=== PATIENT | male | born 1985 | race Caucasian/White ===

== ENCOUNTER 2019-11-25 05:55 | Emergency (ER) | payer OTHER ==
[2019-11-25] MEDS ORDERED: Sodium Chloride 0.9% 10 ML Syringe FLUSH PRN (07:00)
[2019-11-25] MEDS ORDERED: Ondansetron 4 MG/2 ML SDV IVPUSH ONE (07:00)
[2019-11-25] MEDS ORDERED: FLU Vacc QS2019-20(6MOS+)/PF 60 MCG/0.5 ML SYRINGE IM ONE (07:00)
[2019-11-25] MEDS ORDERED: Sodium Chloride 0.9% 1,000 ML IV SCH (07:00)
[2019-11-25] MEDS ORDERED: HYDROmorphone 1 MG/ML Syringe IVPUSH ONE (07:01)
[2019-11-25] MEDS ORDERED: Ketorolac 30 MG/ML SDV IVPUSH ONE (07:01)
--- NOTE | 2019-11-25 07:10 | EDM.PDOC ---
ED HPI GENERAL MEDICAL PROBLEM - General Chief Complaint: Abdominal Pain Stated Complaint: extreme lower back and abdominal pain uti Time Seen by Provider: 11/25/19 06:53 Source of Information: Reports: Patient History Limitations: Reports: No Limitations - History of Present Illness INITIAL COMMENTS - FREE TEXT/NARRATIVE: The patient presents with low back pain that radiates to his abdomen. This started yesterday with dysuria and then this morning on his way to work the sever low back pain started. He has nausea but no vomiting. He has no hematuria that he has noticed. He has no fever, chills, cough, congestion, chest pain, or shortness of breath. Onset: Gradual Duration: Day(s): (Yesterday) Location: Reports: Abdomen, Back Quality: Reports: Sharp Severity: Severe Improves with: Reports: None Worsens with: Reports: None Associated Symptoms: Reports: Nausea/Vomiting. Denies: Chest Pain, Cough, Fever /Chills, Headaches, Shortness of Breath Bilateral Lower Back Pain Score (Numeric/FACES): 10 - Related Data Allergies Allergy/AdvReac Type Severity Reaction Status Date / Time No Known Allergies Allergy Verified 11/25/19 06:32 Home Meds: Home Meds Hydrocodone/Acetaminophen [Hydrocodon-Acetaminophen 5-325] 1 - 2 each PO Q6HR PRN #20 tablet 11/25/19 [Rx] Losartan [Cozaar] 1 tab PO DAILY 11/25/19 [History] Tamsulosin HCl [Flomax] 0.4 mg PO DAILY #7 cap.er.24h 11/25/19 [Rx] amLODIPine [Norvasc] 1 tab PO BEDTIME 11/25/19 [History] Past Medical History Cardiovascular History: Reports: Hypertension Psychiatric History: Reports: Anxiety - Infectious Disease History Infectious Disease History: Reports: Chicken Pox Social & Family History - Family History Family Medical History: Noncontributory : Reports: Renal Calculus - Tobacco Use Smoking Status *Q: Former Smoker Used Tobacco, but Quit: Yes Month/Year Tobacco Last Used: 09/2011 - Caffeine Use Caffeine Use: Reports: Coffee - Alcohol Use Date of Last Drink: 05/17/19 - Recreational Drug Use Recreational Drug Use: No ED ROS GENERAL - Review of Systems Review Of Systems: See Below Constitutional: Reports: No Symptoms HEENT: Reports: No Symptoms Respiratory: Reports: No Symptoms Cardiovascular: Reports: No Symptoms Endocrine: Reports: No Symptoms GI/Abdominal: Reports: Abdominal Pain, Nausea. Denies: Diarrhea, Vomiting : Reports: Flank Pain Musculoskeletal: Reports: Back Pain ED EXAM, RENAL/ - Physical Exam Exam: See Below Exam Limited By: No Limitations General Appearance: Alert, No Apparent Distress Ears: Normal External Exam Nose: Normal Inspection Head: Atraumatic, Normocephalic Neck: Normal Inspection Respiratory/Chest: No Respiratory Distress, Lungs Clear, Normal Breath Sounds Cardiovascular: Regular Rate, Rhythm, No Edema, No Murmur GI/Abdominal: Normal Bowel Sounds, Non-Tender, No Organomegaly, No Mass Course - Vital Signs Last Recorded V/S: Last Vital Signs Temp 96.5 F L 11/25/19 06:24 Pulse 94 11/25/19 06:24 Resp 22 H 11/25/19 06:24 BP 143/125 H 11/25/19 06:24 Pulse Ox 99 11/25/19 06:24 - Orders/Labs/Meds Orders: Active Orders 24 hr Category Date Time Status Influenza Vaccine Charge [RC] .DISCHARGE Care 11/25/19 06:44 Active Peripheral IV Care [RC] . DIRECTED Care 11/25/19 07:01 Active Sodium Chloride 0.9% [Normal Saline] 1,000 ml Med 11/25/19 07:00 Active IV ASDIRECTED Sodium Chloride 0.9% [Saline Flush] Med 11/25/19 07:00 Active 10 ml FLUSH ASDIRECTED PRN ED Antiemetic Medication Reflex [OM.PC] Stat Oth 11/25/19 07:00 Ordered Peripheral IV Insertion Adult [OM.PC] Stat Oth 11/25/19 07:00 Ordered Medication Orders Sodium Chloride (Normal Saline) 1,000 mls @ 125 mls/hr IV ASDIRECTED [facility] Last Admin: 11/25/19 07:17 Dose: 125 mls/hr Sodium Chloride (Saline Flush) 10 ml FLUSH ASDIRECTED PRN PRN Reason: Keep Vein Open Labs: Laboratory Tests 11/25/19 11/25/19 11/25/19 Range/Units 06:55 06:55 06:55 WBC 7.05 (4.23-9.07) K/mm3 RBC 5.08 (4.63-6.08) M/mm3 Hgb 15.0 (13.7-17.5) gm/dl Hct 45.1 (40.1-51.0) % MCV 88.8 (79.0-92.2) fl MCH 29.5 (25.7-32.2) pg MCHC 33.3 (32.2-35.5) g/dl RDW Std Deviation 38.6 (35.1-43.9) fL Plt Count 294 (163-337) K/mm3 MPV 10.7 (9.4-12.3) fl Neut % (Auto) 59.1 (34.0-67.9) % Lymph % (Auto) 31.3 (21.8-53.1) % [place] % (Auto) 7.0 (5.3-12.2) % Eos % (Auto) 2.4 (0.8-7.0) Baso % (Auto) 0.1 (0.1-1.2) % Neut # (Auto) 4.16 (1.78-5.38) K/mm3 Lymph # (Auto) 2.21 (1.32-3.57) K/mm3 [place] # (Auto) 0.49 (0.30-0.82) K/mm3 Eos # (Auto) 0.17 (0.04-0.54) K/mm3 Baso # (Auto) 0.01 (0.01-0.08) K/mm3 Sodium 141 (136-145) mEq/L Potassium 3.9 (3.5-5.1) mEq/L Chloride 104 (98-107) mEq/L Carbon Dioxide 22 (21-32) mEq/L Anion Gap 18.9 H (5-15) BUN 21 H (7-18) mg/dL Creatinine 1.0 (0.7-1.3) mg/dL Est Cr Clr Drug Dosing 105.44 mL/min Estimated GFR (MDRD) > 60 (>60) mL/min BUN/Creatinine Ratio 21.0 H (14-18) Glucose 125 H (74-106) mg/dL Calcium 8.6 (8.5-10.1) mg/dL Total Bilirubin 0.3 (0.2-1.0) mg/dL AST 21 (15-37) U/L ALT 28 (16-63) U/L Alkaline Phosphatase 80 (46-116) U/L Total Protein 7.5 (6.4-8.2) g/dl Albumin 3.9 (3.4-5.0) g/dl Globulin 3.6 gm/dL Albumin/Globulin Ratio 1.1 (1-2) Lipase 128 (73-393) U/L Urine Color Yellow (Yellow) Urine Appearance Clear (Clear) Urine pH 6.5 (5.0-8.0) Ur Specific [place] > or = 1.030 (1.005-1.030) Urine Protein Negative (Negative) Urine Glucose (UA) Negative (Negative) Urine Ketones Negative (Negative) Urine Occult Blood 3+ H (Negative) Urine Nitrite Negative (Negative) Urine Bilirubin Negative (Negative) Urine Urobilinogen 0.2 (0.2-1.0) Ur Leukocyte Esterase Negative (Negative) Urine RBC >100 H (0-5) /hpf Urine WBC 0-5 (0-5) /hpf Ur Squamous Epith Cells 0-5 (0-5) /hpf Urine Bacteria Few (FEW) /hpf Urine Mucus Few (FEW) /hpf Meds: Medications Generic Name Dose Route Start Last Admin Trade Name Freq PRN Reason Stop Dose Admin Sodium Chloride 1,000 mls @ 125 mls/hr 11/25/19 07:00 11/25/19 07:17 Normal Saline IV 125 mls/hr ASDIRECTED ANTIONETTE Administration Sodium Chloride 10 ml 11/25/19 07:00 Saline Flush FLUSH ASDIRECTED PRN Keep Vein Open Discontinued Medications Generic Name Dose Route Start Last Admin Trade Name Freq PRN Reason Stop Dose Admin Hydromorphone HCl 1 mg 11/25/19 07:01 11/25/19 07:17 Dilaudid IVPUSH 11/25/19 07:02 1 mg ONETIME ONE Administration Influenza Virus Vaccine 60 mcg 11/25/19 07:00 Fluzone Quad Syringe IM 11/25/19 07:01 .ONCE ONE Ketorolac Tromethamine 30 mg 11/25/19 07:01 11/25/19 07:16 Toradol IVPUSH 11/25/19 07:02 30 mg ONETIME ONE Administration Ondansetron HCl 4 mg 11/25/19 07:00 11/25/19 07:16 Zofran IVPUSH 11/25/19 07:01 4 mg ONETIME ONE Administration - Re-Assessments/Exams Free Text/Narrative Re-Assessment/Exam: 11/25/19 07:09 I ordered an IV NS at 125mL/hr, zofran 4mg IV, toradol 30mg IV, dilaudid 1mg IV , labs, UA and a CT of his abdomen and pelvis. 11/25/19 08:59 His CBC looks good. His anion gap is elevated at 18.9. His BUN is elevated at 21. His lipase is normal. His UA shows blood but no UTI. I will get him on some flomax and something for pain. Departure - Departure Time of Disposition: 09:05 Disposition: Home, Self-Care 01 Condition: Good Clinical Impression: Kidney stone on right side - Discharge Information *PRESCRIPTION DRUG MONITORING PROGRAM REVIEWED*: No *COPY OF PRESCRIPTION DRUG MONITORING REPORT IN PATIENT WILLIAM: No Prescriptions: Hydrocodone/Acetaminophen [Hydrocodon-Acetaminophen 5-325] 1 - 2 each PO Q6HR PRN #20 tablet PRN Reason: Pain Tamsulosin HCl [Flomax] 0.4 mg PO DAILY #7 cap.er.24h Referrals: PCP,None [Primary Care Provider] - Jack Palumbo MD [Ordering Only Provider] - 2 Weeks Forms: ED Department Discharge Additional Instructions: Drink plenty of fluids. Take the tamiflu daily. Take motrin or tylenol for pain. If that does not help try the hydrocodone. If you have not passed the stone within a week call Dr Palumbo the urologist in [place] and follow up. Please return if you are worse. Sepsis Event Note - Evaluation Sepsis Screening Result: No Definite Risk - Focused Exam Vital Signs: Vital Signs Temp Pulse Resp BP Pulse Ox 11/25/19 06:24 96.5 F L 94 22 H 143/125 H 99 Date Exam was Performed: 11/25/19 Time Exam was Performed: 08:59 - My Orders Last 24 Hours: My Active Orders 11/25/19 06:44 Influenza Vaccine Charge [RC] .DISCHARGE 11/25/19 07:00 Sodium Chloride 0.9% [Normal Saline] 1,000 ml IV ASDIRECTED Sodium Chloride 0.9% [Saline Flush] 10 ml FLUSH ASDIRECTED PRN ED Antiemetic Medication Reflex [OM.PC] Stat Peripheral IV Insertion Adult [OM.PC] Stat 11/25/19 07:01 Peripheral IV Care [RC] . DIRECTED - Assessment/Plan Last 24 Hours: My Active Orders 11/25/19 06:44 Influenza Vaccine Charge [RC] .DISCHARGE 11/25/19 07:00 Sodium Chloride 0.9% [Normal Saline] 1,000 ml IV ASDIRECTED Sodium Chloride 0.9% [Saline Flush] 10 ml FLUSH ASDIRECTED PRN ED Antiemetic Medication Reflex [OM.PC] Stat Peripheral IV Insertion Adult [OM.PC] Stat 11/25/19 07:01 Peripheral IV Care [RC] . DIRECTED
--- NOTE | 2019-11-25 08:39 | CT ---
CT abdomen and pelvis Technique: Multiple axial sections were obtained from above the dome of the diaphragm inferiorly through the pubic symphysis. Intravenous and oral contrast not utilized. Study has been performed as a ureteral stone protocol. Comparison: No prior CT abdomen or pelvis exam is available. Findings: Horseshoe kidney is noted. Right ureter is dilated down to the UVJ. 2.5-3 mm stone noted at the UVJ projecting into the bladder. No other ureteral calculi are seen. No renal calculi are identified. Visualized lung bases show nothing acute. Liver contains no focal parenchymal abnormality. Spleen appears within normal limits. Adrenal glands show no nodule. Accessory splenic tissue noted medial to the spleen. Pancreas appears within normal limits. Gallbladder contains no calcified gallstones. Aorta shows no aneurysm. No retroperitoneal adenopathy or mesenteric abnormalities are seen. No pelvic mass or adenopathy is seen. No free fluid is identified. No inflammatory change is seen. Appendix not definitely visualized. Please correlate if there has been prior appendectomy. Bone window settings were reviewed which appear within normal limits for the patient's age. Small fat-containing umbilical hernia is noted. Impression: 1. Distal obstructing right ureteral stone measuring 2.5-3 mm. This is located within the UVJ projecting into the bladder. 2. Horseshoe kidney. 3. No other acute finding is appreciated. Diagnostic code #3 This report was dictated in MDT
== END 2019-11-25 09:35 | disposition home or self-care (01) ==
LOC: JD.ED 05:55
DX: N20.2 Calculus of kidney with calculus of ureter (principal); I10 Essential (primary) hypertension; Z87.891 Personal history of nicotine dependence
CPT/HCPCS: 36415; 74176; 80053; 81001; 83690; 85025; 90471; 90686; 96361; 96374; 96375; 99284; J1170; J1885; J2405; J7030; G0008

== ENCOUNTER 2020-09-07 14:50 | Emergency (ER) | payer OTHER ==
--- NOTE | 2020-09-07 15:37 | EDM.PDOC ---
<Essie Arellano M - Last Filed: 09/07/20 16:29> ED HPI GENERAL MEDICAL PROBLEM - General Chief Complaint: General Stated Complaint: RT SIDE RIB PAIN Time Seen by Provider: 09/07/20 15:15 Source of Information: Reports: Patient History Limitations: Reports: No Limitations - History of Present Illness INITIAL COMMENTS - FREE TEXT/NARRATIVE: 35-year-old male presents to the emergency department with complaints of right- sided rib pain and left calf pain. Patient states he woke Monday morning with pain to his right ribs. Patient states that the pain radiates around anteriorly and he is unable to take a full deep breath as it causes a sharp stabbing pain. He also states that this pain radiates up into his right shoulder and right side of his neck. Patient also complains of left calf pain that he woke with on Monday morning patient states that when he takes weight off of his leg it feels like it is cramping up into and knot in his calf area. Of note patient does have a history of blood clot in his leg about 3 years ago and he states this feels similar to that instance. They never did find a definitive reason for him having the blood clot. Patient also does have a history of COVID-19 diagnosed in April. He states he has been taking Tylenol for the discomfort noted to his right rib and left calf and this has not been helping. He has also tried using a heating pad and this has not helped. Right Chest Pain Score (Numeric/FACES): 9 - Related Data Allergies Allergy/AdvReac Type Severity Reaction Status Date / Time No Known Allergies Allergy Verified 09/07/20 15:09 Home Meds: Home Meds Losartan [Cozaar] 1 tab PO DAILY 11/25/19 [History] amLODIPine [Norvasc] 10 mg PO BEDTIME 11/25/19 [History] Cefdinir [Omnicef] 300 mg PO BID #16 cap 09/07/20 [Rx] dexAMETHasone [Dexamethasone] 4 mg PO ASDIRECTED #6 tablet 09/07/20 [Rx] oxyCODONE HCl/Acetaminophen [Percocet 5-325 mg Tablet] 1 - 2 each PO Q4H PRN #15 tablet 09/07/20 [Rx] Past Medical History Cardiovascular History: Reports: Blood Clots/VTE/DVT, Hypertension Genitourinary History: Reports: Renal Calculus Psychiatric History: Reports: Anxiety Endocrine/Metabolic History: Reports: Obesity/BMI 30+ - Infectious Disease History Infectious Disease History: Reports: Chicken Pox - Past Surgical History GI Surgical History: Reports: Appendectomy Musculoskeletal Surgical History: Reports: Arthroscopic Knee Social & Family History - Family History Family Medical History: No Pertinent Family History : Reports: Renal Calculus - Tobacco Use Tobacco Use Status *Q: Never Tobacco User - Caffeine Use Caffeine Use: Reports: Soda - Recreational Drug Use Recreational Drug Use: No ED ROS GENERAL - Review of Systems Review Of Systems: See Below Constitutional: Reports: Malaise, Fatigue, Other (ER vital signs 97.6, pulse 106, respiratory rate 16, blood pressure 148/108, pulse ox 97% on room air) HEENT: Reports: No Symptoms Respiratory: Reports: No Symptoms, Other (Complains of stabbing pain to right lateral rib area radiating around anteriorly) Cardiovascular: Reports: No Symptoms Endocrine: Reports: No Symptoms GI/Abdominal: Reports: No Symptoms : Reports: No Symptoms Musculoskeletal: Reports: Neck Pain (Radiating from right rib area), Shoulder Pain (Radiating from right rib area) Skin: Reports: No Symptoms Neurological: Reports: No Symptoms Psychiatric: Reports: No Symptoms Hematologic/Lymphatic: Reports: No Symptoms Immunologic: Reports: No Symptoms ED EXAM, GENERAL - Physical Exam Exam: See Below Exam Limited By: No Limitations General Appearance: Alert, WD/WN, No Apparent Distress Eye Exam: Bilateral Eye: PERRL Ears: Hearing Grossly Normal Nose: Normal Inspection Throat/Mouth: Normal Inspection, Normal Voice, No Airway Compromise Head: Atraumatic, Normocephalic Neck: Normal Inspection, Supple, Non-Tender, Full Range of Motion Respiratory/Chest: No Respiratory Distress, Lungs Clear, Normal Breath Sounds, No Accessory Muscle Use, Chest Non-Tender, Other (Patient is unable to take a full deep breath due to right lateral rib pain that worsens with deep breath.) Cardiovascular: Normal Peripheral Pulses, Regular Rate, Rhythm, No Edema, No Murmur Peripheral Pulses: 2+: Radial (L), Radial (R) GI/Abdominal: Normal Bowel Sounds, Soft, Non-Tender, No Distention (Male) Exam: Deferred Rectal (Males) Exam: Deferred Back Exam: Normal Inspection, Full Range of Motion Extremities: Normal Inspection, Normal Range of Motion, No Pedal Edema, Normal Capillary Refill, Cole's Sign (Positive on left lower extremity), Leg Pain (Lower extremity) Neurological: Alert, Oriented, Normal Cognition Psychiatric: Normal Affect, Normal Mood Skin Exam: Warm, Dry, Intact, Normal Color, No Rash Lymphatic: No Adenopathy #1 Interpretation EKG Date: 09/07/20 Time: 15:35 Rhythm: NSR Rate (Beats/Min): 94 [place]: Normal P-Wave: Present QRS: Normal ST-T: Normal EKG Interpretation Comments: EKG interpretation per Dr. Galan sinus rhythm at 94, early R wave transitiony:Consider RVH/septal hypertrophy, left atrial hypertrophy, T wave flattened aVF, diffuse early repolarization pattern Course - Vital Signs Text/Narrative:: 35-year-old male presenting to the ER with complaints of right rib pain and left calf pain. States that he woke Monday with the right lateral rib pain that radiates around anteriorly. Patient describes it as a stabbing pain worsened with taking a deep breath. He states that the pain will radiate up into his right shoulder and also up into the right side of his neck. Denies smoking cigarettes, making, smoking marijuana or any kind of inhaled substances. Denies cough, fever, or chills. States that starting yesterday he did have general malaise that started and has just been wanting to sleep. He was recently diagnosed with Covid in April. Patient also complains of pain to his left calf that started Monday morning as well. He does have a history of a blood clot to his leg and he states that this feels similar to that event. S tates that when he is ambulating and takes weight off of that left leg cramps up. He has tried to take Tylenol for the discomfort and states this has not helped. Upon assessment patient's lung sounds are clear anterior and posteriorly, heart rate is regular, he denies any abdominal pain with palpation. Denies shortness of breath and/or cough. 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 He does not relate any of this discomfort to that activity, however because he did not develop the pain until Monday which was 3 days later. He does have a history of hypertension for which he takes losartan and amlodipine. I have ordered a CBC, CMP, CRP, LDH, D-dimer, proBNP, PT/INR, APTT, troponin, portable chest x-ray, EKG, and bilateral lower extremity ultrasound. - Radiology Interpretation Free Text/Narrative:: Portable view of the chest impression: 1. Blunting of the right lateral costophrenic angle either due to atelectasis or small area of pneumonia if patient has infectious symptoms. 2. Nothing acute is otherwise seen. I have ordered a CTA of the patient's chest. - Re-Assessments/Exams Free Text/Narrative Re-Assessment/Exam: 09/07/20 16:29 I have given report to regarding this patient. He will be taking over care. Departure - Departure Disposition: Home, Self-Care 01 Clinical Impression: Pleurisy with pleural effusion, Non-cardiac chest pain Pneumonia Qualifiers: Pneumonia type: due to unspecified organism Laterality: right Lung location: lower lobe of lung Qualified Code(s): J18.9 - Pneumonia, unspecified organism - Discharge Information Prescriptions: dexAMETHasone [Dexamethasone] 4 mg PO ASDIRECTED #6 tablet Cefdinir [Omnicef] 300 mg PO BID #16 cap oxyCODONE HCl/Acetaminophen [Percocet 5-325 mg Tablet] 1 - 2 each PO Q4H PRN #15 tablet PRN Reason: pain relief. Instructions: Nonspecific Chest Pain, Adult, [id number], Pleural Effusion, Community-Acquired Pneumonia, Adult, [id number] Referrals: PCP,None [Primary Care Provider] - Forms: ED Department Discharge, ED Return to Work/School Form Additional Instructions: Evaluation in the emergency room today in regards to discomfort in the posterior aspect of your left calf concerning for possible DVT since you have had one in the past. Doppler ultrasound of both lower extremities revealed no blood clots within either lower extremity. Pleuritic chest pain right side along the lower rib margin rating into her back and up into the right shoulder indicating marked inflammation of the pleura or the lung lining on the right side. Portable chest x-ray revealed an infiltrate in the right lower lobe of the lung compatible with a early pneumonia. CT scan of the chest was ordered to rule out any blood clot in the lung and none was found. You did have an elevated D-dimer which is a marker for blood clot formation and blood clot breakdown but it can be elevated with infection as well. CT scan confirmed pneumonia developing in the lower lobe of your right lung a small area of pneumonia in the right middle lobe of your lung and perhaps early in the left lingula or upper lobe of lung. White blood cell count was mildly elevated compatible with an infective process. You were treated with an intravenous antibiotic Rocephin 2 g in the emergency room and oral antibiotic Levaquin 500 mg by mouth. Both of these last about 24 hours. You will need to take oral antibiotic Omnicef 300 mg twice daily starting tomorrow morning and continue this for the next 8 days until the medicine is gone. Pleuritic chest pain treated with Toradol 30 mg in the ER as well as Dilaudid 0.5 mg with an improvement but still had residual pain. You are also given a dose of dexamethasone 6 mg IV which will start to work in 2 to 4 hours to relieve some of the inflammation in the right lung and ease up your pain. Pain pills Percocet 5/325 mg 1 or 2 every 4-6 hours as needed for pain relief over the next 2 to 3 days till the antibiotics become effective in clearing up the pneumonia and pleuritic chest pain should improve. You can still use Motrin 600 mg every 6 hours to relieve inflammation of the lung lining as needed over the next 2 to 3 days. Suggest off work the remainder of this week with tentative return to work September 14. Note given in this regard. Suggest follow-up with your personal care provider in 10 days time to ensure the pneumonia has completely cleared. Sepsis Event Note (ED) - Evaluation Sepsis Screening Result: No Definite Risk <Pasquale Mendez - Last Filed: 09/07/20 19:18> Course - Vital Signs Last Recorded V/S: Last Vital Signs Temp 36.4 C 09/07/20 15:06 Pulse 106 H 09/07/20 15:06 Resp 16 09/07/20 15:06 BP 148/108 H 09/07/20 15:06 Pulse Ox 97 09/07/20 15:06 - Orders/Labs/Meds Orders: Active Orders 24 hr Category Date Time Status EKG Documentation Completion [RC] STAT Care 09/07/20 15:27 Active Ketorolac [Toradol] Med 09/07/20 18:00 Active 30 mg IVPUSH ONETIME Sodium Chloride 0.9% [Normal Saline] 100 ml Med 09/07/20 17:15 Active IV ASDIRECTED Sodium Chloride 0.9% [Saline Flush] Med 09/07/20 17:15 Active 10 ml FLUSH BOLUS Medication Orders Sodium Chloride (Normal Saline) 100 mls @ 60 mls/sec IV ASDIRECTED ANTIONETTE Last Admin: 09/07/20 17:04 Dose: 60 mls/sec Documented by: DELVIS Ketorolac Tromethamine (Toradol) 30 mg IVPUSH ONETIME ANTIONETTE Last Admin: 09/07/20 18:22 Dose: 30 mg Documented by: EMILIO Sodium Chloride (Saline Flush) 10 ml FLUSH BOLUS ANTIONETTE Last Admin: 09/07/20 17:05 Dose: 10 ml Documented by: DELVIS Labs: Laboratory Tests 09/07/20 09/07/20 09/07/20 Range/Units 15:45 15:45 15:45 WBC 11.42 H (4.23-9.07) K/mm3 RBC 5.16 (4.63-6.08) M/mm3 Hgb 15.8 (13.7-17.5) gm/dl Hct 47.2 (40.1-51.0) % MCV 91.5 (79.0-92.2) fl MCH 30.6 (25.7-32.2) pg MCHC 33.5 (32.2-35.5) g/dl RDW Std Deviation 40.3 (35.1-43.9) fL Plt Count 255 (163-337) K/mm3 MPV 10.2 (9.4-12.3) fl Neut % (Auto) 71.1 H (34.0-67.9) % Lymph % (Auto) 18.4 L (21.8-53.1) % [place] % (Auto) 8.1 (5.3-12.2) % Eos % (Auto) 2.2 (0.8-7.0) Baso % (Auto) 0.1 (0.1-1.2) % Neut # (Auto) 8.13 H (1.78-5.38) K/mm3 Lymph # (Auto) 2.10 (1.32-3.57) K/mm3 [place] # (Auto) 0.92 H (0.30-0.82) K/mm3 Eos # (Auto) 0.25 (0.04-0.54) K/mm3 Baso # (Auto) 0.01 (0.01-0.08) K/mm3 Manual Slide Review Normal smear PT 11.0 (9.7-12.0) SECONDS INR 1.03 APTT 28.8 (21.7-31.4) SECONDS D-Dimer, Quantitative 2.14 H (0.19-0.50) mg/L Sodium 138 (136-145) mEq/L Potassium 3.9 (3.5-5.1) mEq/L Chloride 102 (98-107) mEq/L Carbon Dioxide 27 (21-32) mEq/L Anion Gap 12.9 (5-15) BUN 13 (7-18) mg/dL Creatinine 1.0 (0.7-1.3) mg/dL Est Cr Clr Drug Dosing 104.43 mL/min Estimated GFR (MDRD) > 60 (>60) mL/min BUN/Creatinine Ratio 13.0 L (14-18) Glucose 97 (74-106) mg/dL Calcium 9.1 (8.5-10.1) mg/dL Total Bilirubin 0.9 (0.2-1.0) mg/dL AST 17 (15-37) U/L ALT 30 (16-63) U/L Alkaline Phosphatase 84 (46-116) U/L Lactate Dehydrogenase 139 (85-227) U/L Troponin I < 0.017 (0.00-0.056) ng/mL C-Reactive Protein 6.4 H* (<1.0) mg/dL NT-Pro-B Natriuret Pep (0-125) pg/mL Total Protein 8.3 H (6.4-8.2) g/dl Albumin 3.7 (3.4-5.0) g/dl Globulin 4.6 gm/dL Albumin/Globulin Ratio 0.8 L (1-2) 09/07/20 Range/Units 15:45 WBC (4.23-9.07) K/mm3 RBC (4.63-6.08) M/mm3 Hgb (13.7-17.5) gm/dl Hct (40.1-51.0) % MCV (79.0-92.2) fl MCH (25.7-32.2) pg MCHC (32.2-35.5) g/dl RDW Std Deviation (35.1-43.9) fL Plt Count (163-337) K/mm3 MPV (9.4-12.3) fl Neut % (Auto) (34.0-67.9) % Lymph % (Auto) (21.8-53.1) % [place] % (Auto) (5.3-12.2) % Eos % (Auto) (0.8-7.0) Baso % (Auto) (0.1-1.2) % Neut # (Auto) (1.78-5.38) K/mm3 Lymph # (Auto) (1.32-3.57) K/mm3 [place] # (Auto) (0.30-0.82) K/mm3 Eos # (Auto) (0.04-0.54) K/mm3 Baso # (Auto) (0.01-0.08) K/mm3 Manual Slide Review PT (9.7-12.0) SECONDS INR APTT (21.7-31.4) SECONDS D-Dimer, Quantitative (0.19-0.50) mg/L Sodium (136-145) mEq/L Potassium (3.5-5.1) mEq/L Chloride (98-107) mEq/L Carbon Dioxide (21-32) mEq/L Anion Gap (5-15) BUN (7-18) mg/dL Creatinine (0.7-1.3) mg/dL Est Cr Clr Drug Dosing mL/min Estimated GFR (MDRD) (>60) mL/min BUN/Creatinine Ratio (14-18) Glucose (74-106) mg/dL Calcium (8.5-10.1) mg/dL Total Bilirubin (0.2-1.0) mg/dL AST (15-37) U/L ALT (16-63) U/L Alkaline Phosphatase (46-116) U/L Lactate Dehydrogenase (85-227) U/L Troponin I (0.00-0.056) ng/mL C-Reactive Protein (<1.0) mg/dL NT-Pro-B Natriuret Pep 9 (0-125) pg/mL Total Protein (6.4-8.2) g/dl Albumin (3.4-5.0) g/dl Globulin gm/dL Albumin/Globulin Ratio (1-2) Meds: Medications Generic Name Dose Route Start Last Admin Trade Name Freq PRN Reason Stop Dose Admin Sodium Chloride 100 mls @ 60 mls/sec 09/07/20 17:15 09/07/20 17:04 Normal Saline IV 60 mls/sec ASDIRECTED ANTIONETTE Administration Ketorolac Tromethamine 30 mg 09/07/20 18:00 09/07/20 18:22 Toradol IVPUSH 30 mg ONETIME ANTIONETTE Administration Sodium Chloride 10 ml 09/07/20 17:15 09/07/20 17:05 Saline Flush FLUSH 10 ml BOLUS ANTIONETTE Administration Discontinued Medications Generic Name Dose Route Start Last Admin Trade Name Freq PRN Reason Stop Dose Admin Dexamethasone 6 mg 09/07/20 17:49 09/07/20 18:15 Decadron IVPUSH 09/07/20 17:50 6 mg ONETIME ONE Administration Hydromorphone HCl 0.5 mg 09/07/20 17:50 09/07/20 18:14 Dilaudid IVPUSH 09/07/20 17:51 0.5 mg ONETIME ONE Administration Ceftriaxone Sodium 2 gm/ 100 mls @ 200 mls/hr 09/07/20 17:51 09/07/20 18:17 Sodium Chloride IV 09/07/20 18:20 200 mls/hr ONETIME ONE Administration Iopamidol 100 ml 09/07/20 17:02 09/07/20 17:04 Isovue-370 (76%) IVPUSH 09/07/20 17:03 100 ml ONETIME ONE Administration Levofloxacin 500 mg 09/07/20 17:49 09/07/20 18:17 Levaquin PO 09/07/20 17:50 500 mg ONETIME ONE Administration Ondansetron HCl 4 mg 09/07/20 17:51 09/07/20 18:12 Zofran IVPUSH 09/07/20 17:52 4 mg ONETIME ONE Administration - Re-Assessments/Exams Free Text/Narrative Re-Assessment/Exam: 09/07/20 17:14 Care has been assumed from JACKIE Arellano. Doppler ultrasound of both lower extremities reveals no evidence of DVT in either leg. Normal phasic flow augmentation and compression is seen. 09/07/20 17:17 White count is mildly elevated at 11.42 with 71.1% neutrophils. Hemoglobin is 15.8 with a hematocrit of 47.2. Platelet count 255,000. The smear otherwise appears normal. PT is 11.0 with an INR of 1.03 and PTT of 28.8. D-dimer is elevated at 2.14. Sodium 138 with a potassium of 3.9 chloride 102 with a bicarb of 27. Anion gap is 12.9. BUN is 13 with a creatinine of 1.0 GFR is greater than 60. Glucose is 97 with a calcium of 9.1 liver function is normal. LDH is 139 normal. Troponin is less than 0.017. C-reactive protein is elevated at 6.4. BNP is 9. Total protein is 8.3 with an albumin fraction of 3.7. 09/07/20 17:38 CT of the chest has been completed with IV contrast a CT pulmonary angiogram. The pulmonary arteries are fairly well opacified. There are no filling defects seen to indicate a obvious pulmonary embolism. Interpretation of the scan is limited by timing of IV contrast. Slight soft tissue density noted within the superior mediastinum most likely due to residual thymus. No axial adenopathy is seen. Mediastinum shows no adenopathy. Several lymph nodes are seen within the right hilum. No pericardial thickening is seen. Visualized upper abdominal structures show no discrete abnormality. Lung window settings were reviewed. There is an area of increased density within the right lung base as well as a lesser change within the right middle lobe and minimal change within the lingula. Minimal right-sided pleural effusion is seen. Findings are suggestive of a pneumonia. Plan he will be given IV Rocephin 2gm IV. 09/07/20 17:48 and made aware of the findings on CT and chest x-ray of a developing pneumonia right lower lobe and perhaps in the lingula. There is also suspicious lesion in the right middle lobe suggesting pneumonia. It is unlikely that this is related to COVID-19 illness as he had Covid in April of this last year. He will receive Rocephin 2 g intravenously here. He still having significant pleuritic pain. Will be given Dilaudid 0.5 mg IV. And 4 mg IV as well. 09/07/20 19:00: Has completed his Rocephin intravenously. He will be discharged home on Omnicef 300 mg twice daily for another 8 days to clear up pneumonia. Dexamethasone 4 mg twice daily with breakfast and supper starting tomorrow morning for 3 days to help relieve pleuritic chest pain. Percocet tabs 5/325 mg 1-2 every 4-6 hours needed for relief of pleuritic chest pain until antibiotics become effective. Motrin 600 mg every 6 hours to relieve inflammation as needed. Suggest follow-up with his primary care physician in 10 to 14 days time. Note given to excuse him from the workplace until next September 14. Departure - Departure Time of Disposition: 18:54 Condition: Fair - Discharge Information *PRESCRIPTION DRUG MONITORING PROGRAM REVIEWED*: Not Applicable *COPY OF PRESCRIPTION DRUG MONITORING REPORT IN PATIENT WILLIAM: Not Applicable Sepsis Event Note (ED) - Focused Exam Vital Signs: Vital Signs Temp Pulse Resp BP Pulse Ox 09/07/20 15:06 36.4 C 106 H 16 148/108 H 97 - My Orders Last 24 Hours: My Active Orders 09/07/20 18:00 Ketorolac [Toradol] 30 mg IVPUSH ONETIME - Assessment/Plan Last 24 Hours: My Active Orders 09/07/20 18:00 Ketorolac [Toradol] 30 mg IVPUSH ONETIME
--- NOTE | 2020-09-07 16:04 | CR ---
Chest: Portable view of the chest was obtained. Comparison: No prior chest imaging. Slight blunting of the right lateral costophrenic angle most likely representing a small area of atelectasis or a small area of pneumonia. Lungs otherwise are clear. Heart size and mediastinum are normal. Bony structures are grossly intact. Impression: 1. Blunting of the right lateral costophrenic angle either due to atelectasis or small area of pneumonia if patient has infectious symptoms. 2. Nothing acute is otherwise seen. Diagnostic code #3
--- NOTE | 2020-09-07 16:46 | US ---
Bilateral lower extremity deep venous ultrasound: Duplex and color Doppler evaluation was obtained of the right and left common femoral, proximal greater saphenous, superficial femoral, popliteal, posterior tibial and peroneal veins. Comparison: No prior venous imaging is available. Findings: Normal phasic flow, augmentation and compression is seen. Impression: 1. No evidence of deep venous thrombosis within the right or left lower extremity. Diagnostic code #1
[2020-09-07] MEDS ORDERED: Iopamidol 755 Mg/ML 100 ML Bottle IVPUSH ONE (17:02)
[2020-09-07] MEDS ORDERED: Sodium Chloride 0.9% 100 ML IV SCH (17:15)
[2020-09-07] MEDS ORDERED: Sodium Chloride 0.9% 10 ML Syringe FLUSH SCH (17:15)
--- NOTE | 2020-09-07 17:24 | CT ---
CT chest Technique: Multiple axial sections through the chest were obtained. Study was performed as a pulmonary angiogram protocol and intravenous contrast was utilized. Findings: Pulmonary arteries are fairly well opacified. There are no filling defects being seen to indicate discrete pulmonary embolism. Slight soft tissue density noted within the superior mediastinum most likely due to residual thymus. No axillary adenopathy is seen. Mediastinum shows no adenopathy. Several lymph nodes are seen within the right hilum. No pericardial thickening is seen. Visualized upper abdominal structures show no discrete abnormality. Lung window settings were reviewed. There is an area of increased density within the right lung base as well as lesser change within the right middle lobe and minimal change within the lingula. Minimal right-sided pleural effusion is seen. Impression: 1. No findings of pulmonary embolism. 2. Minimal pleural effusion on the right side. Increased density within the right lung base as well as mild density within the right middle lobe and minimal density within the lingula. Findings raise the possibility of pneumonia. Please correlate. 3. Very slight lymph nodes within the right hilum most likely residual from the left lower lobe process. Diagnostic code #3
[2020-09-07] MEDS ORDERED: Levofloxacin 500 MG Tab PO ONE (17:49)
[2020-09-07] MEDS ORDERED: Dexamethasone 10 MG/ML SDV IVPUSH ONE (17:49)
[2020-09-07] MEDS ORDERED: HYDROmorphone 0.5 MG/0.5 ML Syringe IVPUSH ONE (17:50)
[2020-09-07] MEDS ORDERED: Ondansetron 4 MG/2 ML SDV IVPUSH ONE (17:51)
[2020-09-07] MEDS ORDERED: cefTRIAXone 2 GM in Sodium Chloride 0.9% 100 ML IV ONE (17:51)
[2020-09-07] MEDS ORDERED: Ketorolac 30 MG/ML SDV IVPUSH SCH (18:00)
== END 2020-09-07 19:20 | disposition home or self-care (01) ==
LOC: JD.ED 14:50
DX: J90 Pleural effusion, not elsewhere classified (principal); J18.9 Pneumonia, unspecified organism; R07.89 Other chest pain; F41.9 Anxiety disorder, unspecified; I10 Essential (primary) hypertension; E66.9 Obesity, unspecified; Z79.899 Other long term (current) drug therapy; Z68.31 Body mass index [BMI] 31.0-31.9, adult
CPT/HCPCS: 36415; 71045; 71275; 80053; 83615; 83880; 84484; 85025; 85379; 85610; 85730; 86140; 93005; 93970; 96365; 96375; 99284; A9270; J0696; J1100; J1170; J1885; J2405; J7050; Q9967